=== PATIENT | female | born 1980 | race Caucasian/White ===

== ENCOUNTER 2018-03-17 12:05 | Emergency (ER) | payer OTHER ==
[~2018-03-17] VITALS: Ht 157.5 cm; Wt 88.5 kg
[2018-03-17 12:25] LABS: URINE BILIRUBIN NEGATIVE (Negative); URINE BLOOD NEGATIVE (Negative); URINE CLARITY CLEAR; URINE COLOR YELLOW; URINE GLUCOSE-RANDOM NEGATIVE (Negative); URINE KETONES NEGATIVE (Negative); URINE LEUKOCYTES-REFLEX NEGATIVE (Negative); URINE NITRITE-REFLEX NEGATIVE (Negative); URINE PROTEIN NEGATIVE (Negative); URINE SPECIFIC GRAVITY 1.025 (1.005-1.030); URINE UROBILINOGEN 0.2 E.U./dl (0.2-1.0)
[2018-03-17] MEDS ORDERED: NORCO 5-325 TA1 EACH PO (12:53)
[2018-03-17 13:01] VITALS: BP 114/72
== END 2018-03-17 13:02 | disposition home or self-care (01) ==
LOC: M.ERS 12:05
PROVIDERS: Emergency Medicine Emergency Medical Services
DX: M54.5 Low back pain (principal); R10.9 Unspecified abdominal pain; R35.0 Frequency of micturition; Z98.890 Other specified postprocedural states; Z87.440 Personal history of urinary (tract) infections

== ENCOUNTER 2018-06-22 15:57 | Emergency (ER) | payer OTHER ==
[~2018-06-22] VITALS: Ht 152.4 cm; Wt 88.5 kg
[~2018-06-22 15:57] MED LIST: NORCO 5-325 TA1 EACH PO
[2018-06-22] MEDS ORDERED: DICLOFENAC SODI75 MG PO (16:34)
[2018-06-22] MEDS ORDERED: AUGMENTIN 875-1 EACH PO ×2 (16:34→16:42)
[2018-06-22 16:46] VITALS: BP 112/72
== END 2018-06-22 16:49 | disposition home or self-care (01) ==
LOC: M.ERS 15:57
DX: K04.7 Periapical abscess without sinus (principal); Z87.440 Personal history of urinary (tract) infections